=== PATIENT | male | born 1930 | race Caucasian/White ===

== ENCOUNTER 2017-01-06 00:48 | Inpatient (IN) | payer MEDICARE ==
--- NOTE | ~2017-01-06 | CT2 ---
[facility] A Service [facility] RADIOLOGY TEXT RESULTS PATIENT: CHINEDU RIVERA LOCATION: [facility] 579-01 : [birth year] UNIT #: [id number] AGE: [address]: Chinedu Guzman MD SEX: M ORDER DR: [id number] [facility] [address] [place], [place] [address] [id number] I MR#: [id number] Acc #: [id number] NAME: CHINEDU RIVERA : 1930 SEX: M STUDY DATE/TIME: 01/06/2017 4:08 UNIT: [facility] ROOM: [facility] STUDY DESCRIPTION: CT Abd and Pelv W Cont Attending Physician: Chinedu Guzman M.D. Ordering Physician: Alex Deluca M.D. Primary Care Physician: Primary Care Physician No MEDICAL IMAGING REPORT This report is preliminary unless electronic signature is present EXAM CT of the abdomen and pelvis with contrast HISTORY Vomiting for 2 weeks with generalized abdomen pain. COMPARISON None TECHNIQUE The patient was given 100 mL of Isovue-370 and axial 5.0 mm images were obtained through the abdomen and pelvis. This CT exam was performed with one or more of the following radiation dose reduction techniques: automatic exposure control, adjustment of mA and/or kV according to patient size, and iterative reconstruction. FINDINGS There is bibasilar fibrosis and mild atelectasis. The gallbladder has been removed. The liver, spleen, pancreas, adrenal glands and kidneys are normal. There is mild enlargement of the infrarenal aorta which measures 2.4 cm in diameter. The sigmoid colon and left colon have numerous diverticula. The rest of the bowel is normal. The bladder has small diverticula at multiple sites. The prostate gland is normal. There are postoperative changes in the left hip. IMPRESSION 1. 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 2. 2.4 cm abdominal aortic aneurysm. 3. Small bladder diverticula measuring less than 2.0 cm in diameter. 4. Sigmoid diverticulosis. 5. Otherwise normal. [facility] A Service [facility] RADIOLOGY TEXT RESULTS PATIENT: CHINEDU RIVERA LOCATION: [facility] 579-01 : [birth year] UNIT #: [id number] AGE: [address]: Chinedu Guzman MD SEX: M ORDER DR: Dictated by... Mark Brooks M.D. THIS IS AN ELECTRONICALLY VERIFIED REPORT Mark Brooks M.D. at 01/06/2017 1:36 PM Kathy TD: 01/06/2017 13:14 JOB #: [id number] MEDICAL IMAGING REPORT Page 1 of 1 COPY
--- NOTE | ~2017-01-06 | US84 ---
[id number] [facility]. [facility] [address] [place], [place] [address] [id number] I MR#: [id number] Acc #: [id number] NAME: CHINDEU RIVERA : 1930 SEX: M STUDY DATE/TIME: 01/06/2017 10:36 UNIT: [facility] ROOM: 579 STUDY DESCRIPTION: US LE Veins Complete Kris Stdy Attending Physician: Chinedu Guzman M.D. Ordering Physician: Chinedu Guzman M.D. Primary Care Physician: No Primary Care Physician MEDICAL IMAGING REPORT This report is preliminary unless electronic signature is present EXAM Bilateral lower extremity venous duplex HISTORY Bilateral lower extremity tenderness and edema. FINDINGS Venous duplex imaging of the lower extremities reveals patent femoral, popliteal, tibial, peroneal veins bilaterally with normal venous filling in all the visualized veins. No evidence of thrombosis is seen. IMPRESSION No evidence of DVT seen in the lower extremities bilaterally. Dictated by... Alex Best M.D. THIS IS AN ELECTRONICALLY VERIFIED REPORT Alex Best M.D. at 01/14/2017 7:15 AM Jae TD: 01/06/2017 17:08 JOB #: [id number] MEDICAL IMAGING REPORT Page 1 of 1 COPY
--- NOTE | ~2017-01-06 | CR63 ---
[facility] A Service of [facility] RADIOLOGY TEXT RESULTS PATIENT: CHINEDU RIVERA LOCATION: [facility] 579-01 : [birth year] UNIT #: [id number] AGE: [address]: Chinedu Guzman MD SEX: M ORDER DR: [id number] [facility] [address] [place], [place] [address] [id number] I MR#: [id number] Acc #: [id number] NAME: CHINEDU RIVERA : 1930 SEX: M STUDY DATE/TIME: 01/06/2017 5:11 UNIT: [facility] ROOM: [facility] STUDY DESCRIPTION: CR Chest 2 View Attending Physician: Chinedu Guzman M.D. Ordering Physician: Alex Deluca M.D. Primary Care Physician: No Primary Care Physician MEDICAL IMAGING REPORT This report is preliminary unless electronic signature is present EXAM PA and lateral chest. INDICATION Cough for 2 days with shortness of air. FINDINGS A PA and lateral view of the chest were obtained. The heart size and vascularity are normal. There is right base infiltrate or atelectasis. There is some left lower lobe medial atelectasis. There is also mild diffuse interstitial prominence. The bones are unremarkable. IMPRESSION There appears to be left base atelectasis obscuring the left hemidiaphragm. There is some patchy infiltrate or atelectasis in the right base. There are no comparison studies. Dictated by... Mark Brooks M.D. THIS IS AN ELECTRONICALLY VERIFIED REPORT Mark Brooks M.D. at 01/06/2017 1:36 PM FEL/maryanne TD: 01/06/2017 13:23 JOB #: [id number] MEDICAL IMAGING REPORT Page 1 of 1 COPY
--- NOTE | ~2017-01-06 | HP ---
Unit #: [id number] #: [id number] Patient: CHINEDU RIVERA [address] [address] [id number] I MR#: [id number] NAME: CHINEDU RIVERA ROOM: 579 Age: 86 Sex: M Admission Date: 01/06/2017 : 1930 Attending Physician: Chinedu Guzman M.D. Primary Care Physician: No Primary Care Physician HISTORY AND PHYSICAL HISTORY OF PRESENT ILLNESS The patient is an 86-year-old man who presented to the emergency room with symptoms of nausea and vomiting over the past 2 weeks, which has been progressive, associated with abdominal discomfort. No diarrhea. Last night the patient stated that his symptoms became more frequent and, therefore, was brought to the emergency room. The patient also has symptoms associated with pain over both of his lower extremities, as well as swelling over his lower extremities. The patient states that the swelling over his legs has been there for a while, is not able to specify exact duration of time but states that it is chronic. PAST MEDICAL HISTORY None stated. ALLERGIES None stated. MEDICATIONS Medications include Ativan p.r.n. SOCIAL HISTORY Drinks about 3 ounces of vodka daily. No smoking history. REVIEW OF SYSTEMS As per history of present illness. Rest of review of systems is negative. PHYSICAL EXAMINATION VITAL SIGNS: Heart rate 114, blood pressure 90/70. Afebrile. HEENT: Oropharynx dry. No exudate. NECK: Supple. Trachea midline. CARDIOVASCULAR SYSTEM: S1, S2. Tachycardic. Regular rhythm. LUNGS: Bilateral air entry. Rales over bilateral bases, left greater than right. ABDOMEN: Soft. Bowel sounds active. No guarding. No rigidity. EXTREMITIES: Bilateral lower extremity edema, 2+ pitting. Tenderness over bilateral lower extremities. Peripheral pulses palpable, 2+. TERRITORY MANAGER: No acute focal deficits. ASSESSMENT AND PLAN 1. Dehydration, hypovolemia secondary to nausea and vomiting: Plan is to order IV fluids for hydration. 2. Pneumonia, aspiration pneumonia: Plan is to order Zosyn for broad-spectrum and anaerobic coverage. 3. ETOH abuse and dependence: Plan is to order CIWA protocol. IV Unit #: [id number] #: [id number] Patient: CHINEDU RIVERA thiamine. Dictated by Felipa Hernandez TD: 01/06/2017 10:51 JOB #: [id number] HISTORY AND PHYSICAL Page 1 of 1 X X HISTORY AND PHYSICAL
--- NOTE | ~2017-01-06 | EKG ---
PATIENT: ANNA RIVERA UNIT #: [id number] Ventricular Rate: 114 BPM Atrial Rate: 114 BPM P-R Interval: 192 ms QRS Duration: 66 ms Q-T Interval: 316 ms QTC Calculation(Bezet): 435 ms P [place]: 57 degrees Calculated R [place]: 63 degrees Calculated T [place]: 20 degrees Diagnosis Line: Sinus tachycardia with Fusion complexes Diagnosis Line: Possible Anterior infarct , age undetermined Diagnosis Line: Abnormal ECG Diagnosis Line: No previous ECGs available Diagnosis Line: Confirmed by SUJATHA WEEKS MD ([id number]) on Diagnosis Line: 01/07/2017 4:02:32 PM INTERPRETING MD: MICKY GALLO
[2017-01-06 03:07] LABS: BASOPHIL# 0.1 X10e3 (0-0.3); BASOPHIL% 0.9 % (0-2.5); EOSINOPHIL% 0.2 % (0.0-7.0); HEMATOCRIT 44.1 % (38.0-50.0); HEMOGLOBIN 14.5 gm/dL (13.0-16.0); LYMPHOCYTE# 1.9 X10e3 (1.0-3.5); MEAN CELL VOLUME 102.7 FL (83-96); MEAN CORPUSCULAR HEMOGLOBIN 33.7 PG (28-34); MEAN CORPUSCULAR HGB CONC 32.8 g/dL (30-36); MEAN PLATELET VOLUME 8.5 FL (6.5-11.5); MONOCYTE# 1.2 X10e3 (0-1.0); MONOCYTE% 9.9 % (3.0-12.0); NEUTROPHIL# 9.2 X10e3 (1.5-7.1); PLATELET COUNT 166 X10e3 (140-420); RED BLOOD COUNT 4.29 X10e (3.90-5.60); RED CELL DISTRIBUTION WIDTH 17.1 % (11.0-15.5); WHITE BLOOD COUNT 12.5 X10e3 (4.0-10.5)
[2017-01-06 03:08] LABS: POC - CKMB <1.0 ng/mL (0.0-7.9); POC - TROPONIN <0.05 ng/mL (<=0.05)
[2017-01-06 03:11] LABS: DIFF IND NO
[2017-01-06 03:33] LABS: ALBUMIN SERUM 3.7 g/dL (3.5-5.0); BILIRUBIN, DIRECT 0.4 mg/dL (0.0-0.2); BILIRUBIN,INDIRECT 1.9 mg/dL (0.0-0.9); BILIRUBIN,TOTAL 2.3 mg/dL (0.2-2.0); BUN/CREATININE RATIO 12.14; CALCIUM SERUM 8.8 mg/dL (8.4-10.2); CREATININE SERUM 1.4 mg/dL (0.6-1.4); GLOM FILT RATE Estimated 44.6 mL/min (>60); PROTEIN TOTAL SERUM 7.4 g/dL (6.0-8.3)
[2017-01-06] MEDS ORDERED: TEMAZEPAM PO (05:20)
[2017-01-06 14:13] LABS: HEMATOCRIT 37.8 % (38.0-50.0); MEAN CELL VOLUME 104.3 FL (83-96); MEAN CORPUSCULAR HEMOGLOBIN 33.7 PG (28-34); MEAN CORPUSCULAR HGB CONC 32.3 g/dL (30-36); MEAN PLATELET VOLUME 8.3 FL (6.5-11.5); RED BLOOD COUNT 3.62 X10e (3.90-5.60); RED CELL DISTRIBUTION WIDTH 17.4 % (11.0-15.5); WHITE BLOOD COUNT 13.2 X10e3 (4.0-10.5)
[2017-01-06 14:21] LABS: HEMOGLOBIN 12.2 gm/dL (13.0-16.0)
[2017-01-06 14:29] LABS: INR 1.1; PROTHROMBIN TIME (PATIENT) 11.7 SECONDS (10.0-11.7)
[2017-01-06 14:39] LABS: BUN/CREATININE RATIO 10.71; CALCIUM SERUM 7.5 mg/dL (8.4-10.2); CREATININE SERUM 1.4 mg/dL (0.6-1.4); GLOM FILT RATE Estimated 44.6 mL/min (>60); POTASSIUM 3.8 mmol/L (3.5-5.1)
[2017-01-07 05:30] LABS: HEMATOCRIT 36.4 % (38.0-50.0); MEAN CORPUSCULAR HEMOGLOBIN 34.2 PG (28-34); MEAN CORPUSCULAR HGB CONC 32.9 g/dL (30-36); MEAN PLATELET VOLUME 8.4 FL (6.5-11.5); RED BLOOD COUNT 3.5 X10e (3.90-5.60)
[2017-01-07 05:38] LABS: INR 1.1; PROTHROMBIN TIME (PATIENT) 11.5 SECONDS (10.0-11.7)
[2017-01-07 06:08] LABS: BUN/CREATININE RATIO 10.83; CALCIUM SERUM 7.4 mg/dL (8.4-10.2); CREATININE SERUM 1.2 mg/dL (0.6-1.4); GLOM FILT RATE Estimated 53.7 mL/min (>60); POTASSIUM 3.3 mmol/L (3.5-5.1)
[2017-01-08 05:24] LABS: HEMATOCRIT 35.1 % (38.0-50.0); HEMOGLOBIN 11.6 gm/dL (13.0-16.0); MEAN CELL VOLUME 102.3 FL (83-96); MEAN CORPUSCULAR HEMOGLOBIN 33.9 PG (28-34); MEAN CORPUSCULAR HGB CONC 33.1 g/dL (30-36); MEAN PLATELET VOLUME 8.2 FL (6.5-11.5); RED BLOOD COUNT 3.43 X10e (3.90-5.60); RED CELL DISTRIBUTION WIDTH 17.4 % (11.0-15.5); WHITE BLOOD COUNT 6.9 X10e3 (4.0-10.5)
[2017-01-08 05:30] LABS: PROTHROMBIN TIME (PATIENT) 10.5 SECONDS (10.0-11.7)
[2017-01-08 05:50] LABS: BUN/CREATININE RATIO 9.09; CALCIUM SERUM 7.6 mg/dL (8.4-10.2); CREATININE SERUM 1.1 mg/dL (0.6-1.4); GLOM FILT RATE Estimated 59.6 mL/min (>60); POTASSIUM 3.3 mmol/L (3.5-5.1)
[2017-01-09 05:41] LABS: HEMATOCRIT 35.4 % (38.0-50.0); HEMOGLOBIN 11.6 gm/dL (13.0-16.0); MEAN CELL VOLUME 104.1 FL (83-96); MEAN CORPUSCULAR HEMOGLOBIN 34.2 PG (28-34); MEAN CORPUSCULAR HGB CONC 32.8 g/dL (30-36); MEAN PLATELET VOLUME 8.4 FL (6.5-11.5); RED BLOOD COUNT 3.4 X10e (3.90-5.60); RED CELL DISTRIBUTION WIDTH 17.6 % (11.0-15.5); WHITE BLOOD COUNT 5.9 X10e3 (4.0-10.5)
[2017-01-09 05:42] LABS: PROTHROMBIN TIME (PATIENT) 10.7 SECONDS (10.0-11.7)
[2017-01-09 06:04] LABS: CALCIUM SERUM 8.2 mg/dL (8.4-10.2); GLOM FILT RATE Estimated 66.9 mL/min (>60); POTASSIUM 3.8 mmol/L (3.5-5.1)
== END 2017-01-10 20:00 | disposition home health service (06) | DRG 179 ==
LOC: CED 00:48 → C5C 05:55 → CEDOF 05:55 → CED 06:12 → CEDOF 07:40 → C5C 07:40
PROVIDERS: Emergency Medicine; Internal Medicine
DX: J69.0 Pneumonitis due to inhalation of food and vomit (principal); E86.0 Dehydration; R13.10 Dysphagia, unspecified; F10.20 Alcohol dependence, uncomplicated; E86.1 Hypovolemia; R26.81 Unsteadiness on feet
CPT/HCPCS: 71020; 74177; 74230; 80048; 80076; 82150; 82553; 82947; 83690; 83880; 84484; 85025; 85027; 85610; 87040; 92526; 92611; 93005; 93970; 94640; 94760; 96361; 96374; 97110; 97116; 97162; 97166; 97530; 97535; 99291; G8978-GP; G8979-GP; G8987-GO; G8988-GO; J0456; J0696; J1650; J2060; J2405; J2543; J3411; J3475; Q9967